=== PATIENT | male | born 1985 | race Caucasian/White ===

== ENCOUNTER 2018-09-08 09:22 | Inpatient (IN) | payer OTHER ==
[~2018-09-08] VITALS: Ht 185.4 cm; Wt 180.9 kg
[2018-09-08 09:29] VITALS: BP 172/86
[2018-09-08 09:59] LABS: ABSOLUTE EOSINOPHILS 0.1 thou/uL (0.0-0.7); ABSOLUTE LYMPHOCYTES 1.1 thou/uL (0.8-5.3); ABSOLUTE MONOCYTES 0.5 thou/uL (0.0-1.2); ABSOLUTE NEUTROPHILS 4.9 thou/uL (1.6-8.1); BASOPHILS 0.5 %; EOSINOPHILS 1.6 %; HEMATOCRIT 46.3 % (42.0-52.0); HEMOGLOBIN 15.6 gm/dL (14.0-18.0); LYMPHOCYTES 16.5 %; MCH 29.4 pg (26.0-34.0); MCHC 33.6 g/dL (28.0-37.0); MCV 87.3 fL (80.0-100.0); MPV 8.2 fl. (7.2-11.1); NUCLEATED RBCS 0 /100WBC; PLATELET COUNT* 204 thou/uL (150-400); POLYS 74.4 %; RBC 5.31 mil/uL (4.50-6.00); RDW-CV 13.6 % (10.5-14.5); WBC 6.6 thou/uL (4.0-11.0)
[2018-09-08 10:04] LABS: ANION GAP 9 mmol/L (7-16); BUN 11 mg/dL (7-18); CALCIUM 9.1 mg/dL (8.5-10.1); CHLORIDE 100 mmol/L (98-107); CO2 30 mmol/L (21-32); CREATININE 0.9 mg/dL (0.6-1.3); GLUCOSE 346 mg/dL (70-99); POTASSIUM 4.2 mmol/L (3.5-5.1); SODIUM 139 mmol/L (136-145)
[2018-09-08 10:09] LABS: BE 0.2 mmol/L (-2 to +3); PCO2 41.6 mmHg (35.0-45.0); PO2 77.9 mmHg (75.0-100.0); pH 7.399 (7.340-7.450)
[2018-09-08 10:13] LABS: ALBUMIN 3.2 g/dL (3.4-5.0); ALKALINE PHOSPHATASE 152 U/L (46-116); LIPASE 93 U/L (73-393); MAGNESIUM 1.8 mg/dL (1.8-2.4); SGOT 17 U/L (15-37); SGPT 39 U/L (30-65); TOTAL BILIRUBIN 0.6 mg/dL (<0.1-1.0); TOTAL PROTEIN 7.1 g/dL (6.4-8.2); TROPONIN-I LEVEL <0.06 ng/mL (<0.06)
[2018-09-08 10:20] LABS: APTT 26.8 Seconds (25.0-31.3); INR 0.9; PROTIME 9.4 Seconds (9.20-11.50)
[2018-09-08 12:55] VITALS: BP 127/75
[2018-09-08 13:15] VITALS: BP 172/86
[2018-09-08 18:42] VITALS: BP 140/86
--- NOTE | 2018-09-08 18:53 | NUR ---
RECEIVED BEDSIDE REPORT FROM ER NURSE VICENTE. ASSUMED PT CARE AROUND 1255. PT A&O X4. VSS. GROUP THERAPY COUNSELOR PLACED TRACING ST WITH NO CHAGNES THIS SHIFT. ADMISSION ASSESSMENT, HISTORY AND EDUCATION COMPLETED CHARTED. PT ORIENTED TO ROOM, BED AND CALL LIGHT. PT COMMUNICATES UNDERSTANDING. PT REPORTS SUBSTERNAL CHEST PAIN THAT IS WORSE WITH DEEP BREATHING, 3/10. DENIES NEED FOR MEDICATION FOR PAIN. CARDIOLOGY IN TO SEE PT - PT TO HAVE STRESS TEST AND ECHO TOMORROW. PT ABLE TO BE UP AD MARCELA. IV TO RIGHT AC INTACT AND INFUSING IVF. PT TOLERATING DIET. VOIDING IN BATHROOM. PT CURRENTLY SITTING UP IN BEDSIDE CHAIR WATCHING TV. LOW FALL RISK PRECAUTIONS IN PLACE. CALL LIGHT IS WITHIN REACH. HOURLY ROUNDING PERFORMED.
[2018-09-08 19:55] VITALS: BP 95/51
[2018-09-09] VITALS: BP 146/85
[2018-09-09 04:00] VITALS: BP 138/76
--- NOTE | 2018-09-09 06:15 | NUR ---
PATIENT PROGRESSING TOWARDS GOALS: PATIENT REPORTS STABBING LOWER RIGHT ABDOMINAL PAIN RATE 3/10 WHICH INCREASES TO 6/10 WITH MOVEMENT. PATIENT DECLINED PAIN MEDICATION. ENCOURAGED TO REPOSITION AND RELAX FOR COMFORT. PATIENT TO HAVE STRESS TEST AND ECHOCARDIOGRAM TODAY. PATIENT AWARE AND NPO. CALL LIGHT WITHIN REACH
--- NOTE | 2018-09-09 07:52 | CON ---
[address] [address] CONSULTATION Name: HUNTER PEREZ Room: [address] IN M.R.#: [id number] Admission: 09/08/18 Attend Phys: Willie Addison Discharge: Date of : 81 Report #: [id number] THIS REPORT FOR: //name// CC: [facility] physician/PCP Van Delgado CARDIOLOGY CONSULTATION HISTORY OF PRESENT ILLNESS: I was asked by Dr. Delgado to see this 33-year-old white male in Cardiology consultation for evaluation and treatment of chest pain. This man has been having chest pain that has been waxing and waning for 2-3 days. He also had bilateral flank pain that began yesterday. That pain has also moved to his chest. He has had some shortness of breath with it. The chest pain seems to be pleuritic, seems to be located in the center of his chest, radiates to his back and right rib cage. The pain is sharp. It is worse with deep breaths. It is also worse if he sits up. He has trouble getting a deep breath if he is sitting up. This man does have a history of non-insulin dependent diabetes mellitus. He has not been checking his blood work and not seeing his doctor. He is not taking any medication for his diabetes. His blood sugar is in excess of 300 today. This man also has a mildly elevated lactate level; however, he is not acidotic; his lactate level is 2.5. His pH is normal at 7.399 and his bicarbonate on the blood gases, I believe, was 28; on the chem profile, it was 30. This man is obese. He does have multiple risk factors including the diabetes. He uses a vaporizing nicotine inhaler. There is family history of coronary artery disease. He does have a normal troponin and a fairly normal EKG. There are no acute changes on EKGs. Chest x-ray also shows no acute changes. He has not had a followup EKG or troponin. He apparently does not have high blood pressure, he says. He does not know about his cholesterol. There is a family history of heart disease with his father had heart trouble at age 39. He uses 2 pots a day of nicotine in his vaping device. He does not smoke cigarettes, drink or use illegal drugs. He says he is a type 2 diabetic. He does weigh 400 pounds. REVIEW OF SYSTEMS: Unremarkable. Please see review of systems form for details and negatives in review of systems. PHYSICAL EXAMINATION: GENERAL: He presents as a well-developed, well-nourished, obese white male, in no particular acute distress. VITAL SIGNS: Pulse was 100 and regular when I examined him, his blood pressure 172/86, respirations were 18 and regular, he was afebrile. HEENT: His head was atraumatic. Eyes clear. NECK: Supple. There is no jugular venous distention or hepatojugular reflux. Thyroid is not enlarged. There is no adenopathy. SKIN: Warm and dry. Mucous membranes are moist. LUNGS: Clear to auscultation and percussion. CARDIAC: Examination of the heart revealed normal first and second heart [address] [address] CONSULTATION Name: HUNTER PEREZ Room: [address] IN .R.#: [id number] Admission: 09/08/18 Attend Phys: Van GwenWillie Ramirez Discharge: Date of : 81 Report #: [id number] sounds. There is soft S4. There is no S3. There are no murmurs, rubs, thrills, heaves or gallops. PMI is nondisplaced. ABDOMEN: Soft, flat, nontender. No palpable masses, no organomegaly. EXTREMITIES: Examination of the extremities revealed no cyanosis, clubbing or edema. NEUROLOGIC: The patient mentated normally, talked normally, moved all extremities normally. IMPRESSION: 1. Chest pain of uncertain cause. 2. Abdominal pain of uncertain cause. 3. Qvc-eovlgtz-cxurvegbo diabetes mellitus that is moderately out of control. 4. Elevated lactate without lactic acidosis. 5. Obesity. 6. Smoking or rather vaping. 7. Family history of coronary artery disease. 8. Elevated alkaline phosphatase at 152. RECOMMENDATION: From a cardiac point of view, we will get a CT of his chest with contrast. I also think he needs a CT of his abdomen with contrast. I would also get a nuclear stress test and an echo. I will get more troponins and EKGs. Thank you very much for asking me to see the patient. If any questions, please feel free to contact me. <ELECTRONICALLY SIGNED> By: Marcel Engel MD, FACC 09/09/18 0752 [id number] [id number]. Jasper Engel MD, FACC /nt
[2018-09-09 08:00] VITALS: BP 133/80
[2018-09-09 12:00] VITALS: BP 144/85
[2018-09-09] MEDS ORDERED: INVOKANA100 MG PO (12:47)
[2018-09-09] MEDS ORDERED: GLUCOTROL5 MG PO (12:47)
[2018-09-09 13:32] VITALS: BP 144/85
--- NOTE | 2018-09-10 13:47 | EKG ---
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 : 1985 Requested By: Marcel Engel Order Number: [id number] Akash MD: Isai Kaufman Measurements Intervals [place] Rate: 99 P: 59 PA: 174 QRS: -37 QRSD: 106 T: 45 QT: 348 QTc: 447 Interpretive Statements Sinus tachycardia Left axis deviation Baseline wander in lead(s) V5 No previous ECG available for comparison Electronically Signed On 09-10-2018 13:47:23 CDT by Isai Kaufman [email or web address] <ELECTRONICALLY SIGNED> By: Isai Kaufman MD, [facility] 09/10/18 1347 9 Isai Kaufman MD, [facility] /EPI
--- NOTE | 2018-09-10 13:50 | EKG ---
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 09/10/18 1349 1403 1403 Isai Kaufman MD, FACC /EPI
--- NOTE | 2018-09-10 13:57 | EKG ---
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
[2018-09-10 16:07] LABS: GLYCOHEMOGLOBIN (HGB A1C) 10.7 % (4.8-5.6)
== END 2018-09-09 15:45 | disposition home or self-care (01) | DRG 194 ==
LOC: M.ERS 09:22 → M.TBA-ER 11:51 → M.2W 11:51
PROVIDERS: Personal Emergency Response Attendant; ADMIT Internal Medicine
DX: R09.1 Pleurisy (principal); Z68.43 Body mass index [BMI] 50.0-59.9, adult; E11.65 Type 2 diabetes mellitus with hyperglycemia; R10.9 Unspecified abdominal pain; R74.0 Nonspecific elevation of levels of transaminase and lactic acid dehydrogenase [LDH]; E78.5 Hyperlipidemia, unspecified; I10 Essential (primary) hypertension; R74.8 Abnormal levels of other serum enzymes; G47.33 Obstructive sleep apnea (adult) (pediatric); L40.9 Psoriasis, unspecified; E66.9 Obesity, unspecified; Z87.891 Personal history of nicotine dependence; Z79.899 Other long term (current) drug therapy; Z82.49 Family history of ischemic heart disease and other diseases of the circulatory system